=== PATIENT | male | born 1945 | race Caucasian/White ===

== ENCOUNTER → 2018-07-19 | Outpatient (CLI) | payer MEDICARE ==
--- NOTE | 2018-07-19 14:05 | Diagnostic Imaging Report ---
EXAMINATION: PA and lateral views of the chest. COMPARISON: None CLINICAL HISTORY: Chronic bronchitis DISCUSSION: Lines/tubes: None. Lungs: The lungs are well inflated. No pneumonia or pulmonary edema. Pleura: No pleural effusion or pneumothorax. Heart and mediastinum: The cardiomediastinal silhouette is normal. Bones and soft tissues: No acute bony abnormalities. IMPRESSION: No acute cardiopulmonary abnormalities. Signed by: Dr. Josias Guerrier M.D. on 07/19/2018 2:02 PM
== END ==
LOC: RAD 13:24
PROVIDERS: ATTEND Internal Medicine
DX: J41.0 Simple chronic bronchitis (principal)
CPT/HCPCS: 71046

== ENCOUNTER → 2018-07-26 | Outpatient (CLI) | payer MEDICARE ==
[~2018-07-26] MED LIST: DIATRIZOATE MEGL/DIATRIZOA SOD 30 ML BTL PO ONE; IOPAMIDOL 370 MG/ML 200 ML INFUS..BTL INJ ONE; SODIUM CHLORIDE 0.9% 50ML 50 ML ONE
[2018-07-26 16:50] LABS: BLOOD UREA NITROGEN 11 mg/dL (7-26); BUN/CREATININE RATIO 11 (6-25); CREATININE, SERUM 0.98 mg/dL (0.72-1.25); EST GLOMERULAR FILTRATION RATE > 60 ML/MIN (60-)
--- NOTE | 2018-07-26 18:04 | Diagnostic Imaging Report ---
EXAM: CT of the abdomen and pelvis WITH contrast HISTORY: Constipation COMPARISON: None. TECHNIQUE: The abdomen and pelvis were scanned utilizing a multidetector helical scanner. Coronal and sagittal reformats are provided. PROTOCOL: Routine IV CONTRAST: 100 cc of Isovue-370. ORAL CONTRAST: Dilute Gastrografin RADIATION DOSE: Total DLP: 445.19 mGy*cm Estimated effective dose: (DLP x 0.015 x size factor) Dose modulation, iterative reconstruction, and/or weight based adjustment of the mA/kV was utilized to reduce the radiation dose to as low as reasonably achievable. COMPLICATIONS: None FINDINGS: LOWER THORAX: Mild right middle lobe atelectasis versus scarring. HEPATOBILIARY: Diffusely decreased attenuation of the liver relative to the spleen. A 1 cm cyst near the dome. No biliary ductal dilatation. The gallbladder is unremarkable. SPLEEN: No splenomegaly. PANCREAS: A 1.4 cm hypodensity within the body (series 2 image 20). No ductal dilation. ADRENALS: No discrete adrenal nodule. Mild diffuse enlargement of the left adrenal gland. KIDNEYS/URETERS: No hydronephrosis, stones, or solid mass lesions. PELVIC ORGANS/BLADDER: Mild enlargement of the prostate, 5.1 cm (ML). PERITONEUM / RETROPERITONEUM: No free air or fluid. LYMPH NODES: No pathologically enlarged lymph node. VESSELS: Diffuse scattered atherosclerotic vascular calcifications. GI TRACT: No distention or wall thickening identified. The appendix is normal. Radiopaque contrast throughout the stomach and small bowel. The colonic fecal burden is mild to moderate. BONES: No aggressive osseous lesion or acute fracture. Moderate degenerative changes at L3-4 with associated 4 mm degenerative retrolisthesis of L3 on L4. SOFT TISSUES: Postsurgical changes in nonspecific fat stranding in the right inguinal region. IMPRESSION: 1. No obstruction or ileus. 2. The colonic fecal burden is mild to moderate. 3. Hepatic steatosis. 4. Incidental 1.4 cm hypodense pancreatic lesion, in the absence of prior pancreatitis, this may reflect a IPMN (Intraductal papillary mucinous neoplasm). Recommend a follow-up nonemergent MRI of the abdomen with and without contrast for further characterization. 5. Mildly enlarged prostate. Signed by: Dr. Francisco Rendon D.O., M.M.M. on 07/26/2018 6:01 PM
== END ==
LOC: CT 15:55
PROVIDERS: ATTEND Internal Medicine Gastroenterology
DX: K59.00 Constipation, unspecified (principal)
CPT/HCPCS: 36415; 74177; 82565; 84520; Q9967

== ENCOUNTER → 2018-08-02 | Day surgery (SDC) | payer MEDICARE ==
[2018-07-29 15:42] LABS: BASOPHILS # (AUTO) 0.1 (0.0-0.1); BASOPHILS % 0.8 % (0.0-1.0); EOSINOPHILS # (AUTO) 0.2 (0.0-0.4); EOSINOPHILS % 2.2 % (0.0-6.0); HEMATOCRIT 40.8 % (38.2-49.6); HEMOGLOBIN 14.3 g/dL (14.0-18.0); LYMPHOCYTES # (AUTO) 1.7 (1.0-3.2); LYMPHOCYTES % 19.8 % (18.0-39.1); MEAN CORPUSCULAR HEMOGLOBIN 32.9 pg (28-32); MONOCYTES # (AUTO) 1.1 (0.2-0.8); MONOCYTES % 12.3 % (4.4-11.3); NEUTROPHILS # (AUTO) 5.6 (2.1-6.9); NEUTROPHILS % 64.6 % (38.7-80.0); PLATELET COUNT 204 x10e3/uL (140-360); RED BLOOD COUNT 4.34 x10e6/uL (4.3-5.7); RED CELL DISTRIBUTION WIDTH 12.8 % (11.7-14.4)
[~2018-08-02] MED LIST changes: +ASPIRIN325 MG PO; -DIATRIZOATE MEGL/DIATRIZOA SOD 30 ML BTL PO ONE; +FENTANYL CITRATE/PF 100MCG/2 ML INJ ONE; +FISH OIL 1,0001 EAC2 PO; +FLAXSEED1000 MG PO; -IOPAMIDOL 370 MG/ML 200 ML INFUS..BTL INJ ONE; +MIDAZOLAM HCL 2 MG/2 ML VIAL ONE; +PROPOFOL IV EMULSION 10 MG/ML 20 ML VIAL ONE; -SODIUM CHLORIDE 0.9% 50ML 50 ML ONE; +VIT C PO; +VIT D PO; +VITAMIN E400 UNI1 PO
--- OUTSIDE RECORDS SUMMARY | 2018-08-02 10:04 | XMS REPORT | Summary of Care ---
Author Author [facility] Outpatient [facility] - [facility] - [place] Address Unknown Phone Unavailable Encounter HQ Kofintr_kamrandavid(FIN) [id number] Date(s): 01/22/15 - 01/22/15 [facility] [place] [address] [phone] Discharge Disposition: Home Attending Physician: Demetrio Cunha MD Vital Signs No data available for this section Problem List No data available for this section Allergies, Adverse Reactions, Alerts No data available for this section Medications No data available for this section Results No data available for this section Immunizations No data available for this section Procedures No data available for this section Social History No data available for this section Assessment and Plan No data available for this section
--- OUTSIDE RECORDS SUMMARY | 2018-08-02 10:04 | XMS REPORT | Summary of Care ---
Author Author [facility] Outpatient Imaging [facility] Outpatient [facility] Address Unknown Phone Unavailable Encounter HQ Encntr_alias(FIN) [id number] Date(s): 01/14/16 - 01/14/16 [facility] Outpatient Imaging [address] [address]- [phone] Discharge Disposition: Home Attending Physician: Demetrio Cunha [...]
--- OUTSIDE RECORDS SUMMARY | 2018-08-02 10:04 | XMS REPORT ---
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 Allergies, Adverse Reactions, Alerts This patient has no known allergies or adverse reactions. Medications This patient has no known medications. Results Test Description Test Time Test Comments Text Results Atomic Results Result Comments CT ABDOMEN/PELVIS W 2018-07-26 17:52:00 [place] [address] Patient Name: JOY SMITH MR #: [id number] : 1945 Age/Sex: 73/M Req #: [id number] Adm Physician: Ordered by: KARTHIK CROWDER MD Report #: [id number] Location: CT Room/Bed: Procedure: [id number] CT/CT ABDOMEN/PELVIS W Exam Date: 07/26/18 Exam Time: 1726 REPORT STATUS: Signed EXAM: CT of the abdomen and pelvis WITH contrast HISTORY: Constipation COMPARISON: None. TECHNIQUE: The abdomen and pelvis were scanned utilizing a multidetector helical scanner. Coronal and sagittal reformats are provided. PROTOCOL: Routine IV CONTRAST: 100 cc of Isovue-370. ORAL CONTRAST: Dilute Gastrografin RADIATION DOSE: Total DLP: 445.19 mGy*cm Estimated effective dose: (DLP x 0.015 x size factor) Dose modulation, iterative reconstruction, and/or weight based adjustment of the mA/kV was utilized to reduce the radiation dose to as low as reasonably achievable. COMPLICATIONS: None FINDINGS: LOWER THORAX: Mild right middle lobe atelectasis versus scarring. HEPATOBILIARY: Diffusely decreased attenuation of the liver relative to the spleen. A 1 cm cyst near the dome. No biliary ductal dilatation. The gallbladder is unremarkable. SPLEEN: No splenomegaly. PANCREAS: A 1.4 cm hypodensity within the body (series 2 image 20). No ductal dilation. ADRENALS: No discrete adrenal nodule. Mild diffuse enlargement of the left adrenal gland. KIDNEYS/URETERS: No hydronephrosis, stones, or solid mass lesions. PELVIC ORGANS/BLADDER: Mild enlargement of the prostate, 5.1 cm (ML). PERITONEUM / RETROPERITONEUM: No free air or fluid. LYMPH NODES: No pathologically enlarged lymph node. VESSELS: Diffuse scattered atherosclerotic vascular calcifications. GI TRACT: No distention or wall thickening identified. The appendix is normal. Radiopaque contrast throughout the stomach and small bowel. The colonic fecal burden is mild to moderate. BONES: No aggressive osseous lesion or acute fracture. Moderate degenerative changes at L3-4 with associated 4 mm degenerative retrolisthesis of L3 on L4. SOFT TISSUES: Postsurgical changes in nonspecific fat stranding in the right inguinal region. IMPRESSION: 1. No obstruction or ileus. 2. The colonic fecal burden is mild to moderate. 3. Hepatic steatosis. 4. Incidental 1.4 cm hypodense pancreatic lesion, in the absence of prior pancreatitis, this may reflect a IPMN (Intraductal papillary mucinous neopl asm). Recommend a follow-up nonemergent MRI of the abdomen with and without contrast for further characterization. 5. Mildly enlarged prostate. Signed by: Dr. Francisco Rendon D.O., M.M.M. on 07/26/2018 6:01 PM Dictated By: FRANCISCO RENDON DO 00 Transcribed By: GRZEGORZ on 07/26/181800 COPY TO: KARTHIK CROWDER MD CHEST 2 VIEWS 2018-07-19 14:01:00 [place] [address] Patient Name: JOY SMITH MR #: [id number] : 1945 Age/Sex: 73/M Req #: [id number] Adm Physician: Ordered by: ENMA JEREZ MD Report #: [id number] Location: [facility] Room/Bed: Procedure: [id number] DX/CHEST 2 VIEWS Exam Date: 07/19/18 Exam Time: 1325 REPORT STATUS: Signed EXAMINATION: PA and lateral views of the chest. COMPARISON: None CLINICAL HISTORY: Chronic bronchitis DISCUSSION: Lines/tubes: None. Lungs: The lungs are well inflated. No pneumonia or pulmonary edema. Pleura: No pleural effusion or pneumothorax. Heart and mediastinum: The cardiomediastinal silhouette is normal. Bones and soft tissues: No acute bony abnormalities. IMPRESSION: No acute cardiopulmonary abnormalities. Signed by: Dr. Myles Diggs M.D. on 07/19/2018 2:02 PM Dictated By: MYLES DIGGS MD 01 Transcribed By: GRZEGORZ on 07/19/181401 COPY TO: ENMA JEREZ MD
--- OUTSIDE RECORDS SUMMARY | 2018-08-02 10:04 | XMS REPORT | Summary of Care ---
Author Author [facility] Outpatient Imaging - [place] Organization [facility] - [place] Address Unknown Phone Unavailable Encounter HQ Encntr_aniceto(FIN) [id number] Date(s): 06/26/16 - 06/26/16 [facility] Outpatient Imaging - [place] [address] [place] [phone] Discharge Disposition: Home or Self Care Attending Physician: Demetrio Cunha MD Vital Signs [...]
--- OUTSIDE RECORDS SUMMARY | 2018-08-02 10:04 | XMS REPORT | Continuity of Care Document ---
Author Author [facility] Address Unknown Phone Unavailable Problems Problem Status Onset Date Classification Date Reported Comments Source M75.101 - UNSP ROTATR-CUFF TEAR/RUPTR OF Active 01/13/2016 [facility] [place] Medications Medication Details Route Status Patient Instructions Ordering Provider Order Date Source Allergies, Adverse Reactions, Alerts Substance Category Reaction Severity Reaction type Status Date Reported Comments Source Immunizations Immunization Date Given Site Status Last Updated Comments Source Results Order Name Results Value Reference Range Date Interpretation Comments Source Shoulder wo contrast MRI Shoulder wo contrast MRI EXAMINATION: MR right shoulder without contrast HISTORY: M75.101 Unspecified rotator cuff tear or rupture of right shoulder, not specified as traumatic; right rotator cuff tear status post repair in February 2016; right shoulder pain and limited range of motion following surgery FINDINGS: MR dated 01/14/2016 and radiographs dated 06/19/2016 are reviewed. Multiplanar, multisequence magnetic resonance imaging of the right shoulder is performed with a local coil. Transverse, oblique coronal, and oblique sagittal images are obtained. Biceps: The intra-articular long head of the biceps tendon is ruptured with distal retraction. Labrum: There is degeneration of the superior labrum without discrete tear. The labrum below the glenoid equator is intact. Rotator cuff tendons: There are postoperative changes of interval rotator cuff repair with punctate foci of susceptibly artifact and multiple orthopedic anchors along the greater tuberosity. Evaluation of the postoperative cuff is limited secondary to the lack of intra-articular contrast. The supraspinatus and infraspinatus tendons are diffusely thinned and attenuated, but appear to remain intact at the orthopedic anchor sites with a focal area of increased signal intensity along the anterior aspect of the supraspinatus tendon footprint. The teres minor tendon is intact. There is persistent tendinosis of the subscapularis tendon with mild partial-thickness articular sided fraying of the distal cranial fibers of the subscapularis tendon. Acromio-osseous outlet: There is a type II acromion with a subacromial spur. The coracoclavicular ligament is intact. Muscles: There is decreased muscle bulk of the supraspinatus muscle. Otherwise, there is normal signal intensity and muscle bulk of the rotator cuff musculature. Cartilage: There is moderate acromioclavicular degenerative arthrosis. Moderate glenohumeral osteoarthrosis is redemonstrated with multiple areas of high-grade, deep partial thickness to near full-thickness chondrosis along the humeral head. Bone: There is osteophyte formation along the inferomedial humeral head. There are no acute fractures. There are no suspicious bone marrow replacing lesions. The coracohumeral distance is narrowed measuring 6 mm (series 3, image 11). Soft tissue: There is no fluid in the subacromial-subdeltoid bursa. There is a small to moderate-sized glenohumeral joint effusion. IMPRESSION: 1. Postoperative changes of interval right rotator cuff repair with punctate foci of susceptibility artifact in multiple orthopedic anchors along the greater tuberosity. Evaluation of the postoperative cuff is limited secondary to the lack of intra-articular contrast; however, the supraspinatus and infraspinatus tendons, while diffusely thinned and attenuated, appear to remain intact at the orthopedic anchor sites. There is a focal area of increased signal intensity along the anterior aspect of the supraspinatus tendon apparent which may represent residual postoperative tendinosis. Improved evaluation and characterization of the postoperative right supraspinatus and infraspinatus tendons may be performed with MR arthrogram as clinically indicated, particularly given the underlying diffuse thinning and attenuation of the tendons. 2. Persistent tendinosis of the right subscapularis tendon with mild partial-thickness, articular sided fraying of the distal cranial fibers of the subscapularis tendon. There is also narrowing of the coracohumeral distance measuring 6 mm which is nonspecific, but may be seen in the setting of subcoracoid impingement in the correct clinical context. 3. Unchanged decreased muscle bulk of the right supraspinatus muscle. 4. Degeneration of the superior right glenoid labrum without discrete labral tear. 5. Unchanged moderate right glenohumeral osteoarthrosis with multiple areas of high- grade, deep partial thickness to near full-thickness chondrosis along the humeral head, as well as, osteophyte formation along the inferomedial humeral head. 6. Moderate right acromioclavicular degenerative arthrosis. 7. Small to moderate-sized right glenohumeral joint effusion. 06/26/2016 - - Read by: Ronan Briseno MD Dictated Date/time: 06/26/16 17:17 Electronically Signed by: Ronan Briseno MD 06/26/16 17:34 FINAL REPORT SHAUNNA Jalloh Shoulder series DX Shoulder series DX Exam: Right shoulder x-ray, 3 views Reason for Exam: pain in right shoulder Comparison Exam: MRI 01/14/2016 Discussion: No acute bony abnormality seen of the right shoulder. Osteoarthritis is again seen involving the glenohumeral joint and AC joint. No suspicious osteoblastic or osteolytic lesions. The visualized portions of the right rib cage and right lung are unremarkable. Impression: 1. No acute bony abnormality seen of the right shoulder. 06/19/2016 - - Read by: Raman Gross MD Dictated Date/time: 06/19/16 12:19 Electronically Signed by: Raman Gross MD 06/19/16 12:22 FINAL REPORT SHAUNNA Jalloh Shoulder wo contrast MRI Shoulder wo contrast MRI EXAM: MRI of the right shoulder without contrast INDICATION: M75.101 Unspecified rotator cuff tear or rupture of right shoulder, not specified as traumatic COMPARISON: None. TECHNIQUE: Multiplanar, multisequence magnetic resonance imaging of the right shoulder was performed without the administration of intravenous gadolinium contrast. FINDINGS: Glenohumeral joint: The humeral head is high riding with respect to the glenoid and there is associated acetabularization along the undersurface of the acromion. Glenohumeral joint osteoarthrosis is seen with joint space narrowing and marginal osseous spurring. Full-thickness cartilage loss with mild underlying cystic change along the superior humeral head is seen. Moderate-sized glenohumeral joint effusion and synovitis is noted, communicating with the subacromial-subdeltoid bursa. No labral tear or capsular abnormality is seen. Osseous acromion complex: The acromion is type III in morphology and shows horizontal orientation. Large subacromial bony spur arising from the undersurface of the acromion is seen. There is no os acromiale. Moderate-severe AC joint osteoarthrosis is seen. Rotator cuff tendons: Full thickness tear of the supraspinatus tendon and anterior fibers of the infraspinatus tendon is seen measuring 3.5 cm AP dimension with up to 4 cm proximal retraction of the torn tendon stumps. Moderate tendinosis of the remaining posterior fibers of the infraspinatus tendon is seen. Mild subscapularis tendinosis is also seen. There is a superimposed full-thickness tear of the superior fibers of the distal subscapularis tendon with proximal retraction of the torn tendon stump to the level of the glenoid. Biceps tendon: Intracapsular disruption of the biceps tendon at the biceps labral anchor is seen with distal retraction of the torn tendon stump to the level of the proximal humeral metaphysis. Soft tissues: No extracapsular mass or cystic fluid collection is seen. Moderate atrophy of the supraspinatus muscle belly is seen. IMPRESSION: 1. Glenohumeral joint osteoarthrosis with high-grade chondrosis along the humeral head. Moderate-sized glenohumeral joint effusion and synovitis is seen. 2. Full-thickness tear of the supraspinatus tendon and anterior fibers of the infraspinatus tendon measuring 3.5 cm AP dimension with up to 4 cm proximal retraction of the torn tendon stump. 3. Full-thickness tear of the superior fibers of the distal subscapularis tendon. 4. Intracapsular disruption of the biceps tendon at the biceps labral anchor with distal retraction of the torn tendon stump to the level of the proximal humeral metaphysis. 5. Moderate-severe AC joint osteoarthrosis. SL: [id number] 01/14/2016 - - Read by: Vaibhav Chang MD Dictated Date/time: 01/14/16 14:34 Electronically Signed by: Vaibhav Chang MD 01/14/16 14:44 FINAL REPORT [facility] [place] Humerus wo contrast MRI Humerus wo contrast MRI EXAMINATION: MRI of the left humerus without contrast HISTORY: Left biceps injury on 01/16/2015; patient felt a "pop"; biceps tendon rupture FINDINGS: There are no radiographs available for review. Multiplanar, multisequence magnetic resonance imaging of the left upper arm is performed with a local coil without contrast. There is complete rupture of the proximal long head of the biceps tendon within the bicipital groove with distal retraction of the biceps tendon to the level of the proximal left humerus approximately 11 cm distal to the superior aspect of the humeral head ( series 4, images 28 to 34). There is associated edema/hemorrhage within the proximal biceps tendon sheath and along the proximal long head of the biceps myotendinous junction. The short head of the biceps tendon remains intact proximally. The visualized aspect of the distal biceps tendon is normal. There is otherwise normal muscle bulk and signal intensity of the upper arm musculature. The neurovascular bundles are normal. There is subcutaneous edema along the anterior aspect of the proximal to mid upper arm. There is no evidence of fracture, osteonecrosis, or osteomyelitis within the visualized left humerus. 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 IMPRESSION: 1. Complete rupture of the proximal left long head of the biceps tendon within the bicipital groove with distal retraction of the biceps tendon and associated edema/hemorrhage within the proximal biceps tendon sheath and along the proximal myotendinous junction of the long head of the biceps muscle. 2. Subcutaneous edema/bruising along the anterior aspect of the proximal to mid left upper arm. 3. 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 Recommend correlation with patient's medical history and this may be further evaluated with thoracic spine radiographs as clinically indicated. 01/22/2015 - - Read by: Ronan Briseno MD Dictated Date/time: 01/22/15 17:19 Electronically Signed by: Ronan Briseno MD 01/22/15 17:32 FINAL REPORT SHAUNNA [place] Vital Signs Vital Sign Value Date Comments Source Encounters Location Location Details Encounter Type Encounter Number Reason For Visit Attending Provider ADM Date DC Date Status Source [facility] [place] [facility] [id number] Demetrio Martinez Jr 01/22/2015 01/23/2015 [facility] [place] [facility] [place] [facility] [id number] Demetrio Martinez Jr 01/14/2016 01/15/2016 SHAUNNA [place] [facility] - [place] [facility] [id number] Demetrio Martinez Jr 06/19/2016 06/20/2016 SHAUNNA Jalloh [facility] [place] [facility] [id number] Demetrio Martinez Jr 06/26/2016 06/27/2016 SHAUNNA Jalloh Procedures Procedure Code Date Perfomer Comments Source
--- OUTSIDE RECORDS SUMMARY | 2018-08-02 10:04 | XMS REPORT | Clinical Summary ---
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 Last Filed Vital Signs Not on file Plan of Treatment Health Maintenance Due Date Last Done Comments COLON CANCER SCREENING 1993 SHINGLES VACCINES (1 of 1993 2) PNEUMOCOCCAL 2008 POLYSACCHARIDE VACCINE AGE 65 AND OVER PNEUMOCOCCAL-13 2008 INFLUENZA VACCINE 02/02/2018 Results Not on fileafter 08/01/2017 Insurance Payer Benefit Subscriber ID Type Phone Address Plan / Group MEDICARE MEDICARE xxxxxxxxxx Medicare [place], [place] PART A [place] B AARP AARP xxxxxxxxxxx Commercial SUPPLEMENT (Home) [place] [address] Advance Directives Patient has advance care planning documents on file. For more information, yocasta e contact: Mg [facility] [address] [place] [address]
[2018-08-02 13:50] VITALS: BP 142/92
--- NOTE | 2018-08-02 16:03 | Operative Report ---
DATE OF PROCEDURE: August 02, 2018 REFERRING PHYSICIAN: Dr. Rodrick Jerez PROCEDURES PERFORMED 1. Esophagogastroduodenoscopy with biopsies. 2. Colonoscopy with biopsies. INDICATIONS FOR EGD: Dyspepsia. INDICATIONS FOR COLONOSCOPY: Colorectal cancer screening and change in bowel habits. MEDICATION: Patient was done under MAC. Please see anesthesiologist's note. PROCEDURE: With the patient in the left lateral decubitus position, the flexible fiberoptic Olympus gastroscope was introduced into the esophagus under direct visualization without any difficulty. There was some patchy erythema noted in the distal esophagus. Minute tongues of velvety red mucosa were noted to extend proximally from the GE junction. Biopsies were obtained to rule out Yousif's. The scope was then advanced with ease into the stomach. Mucosa overlying the antrum and the body revealed some patchy erythema and mild to moderate edema, and biopsies were obtained and sent to stain for H. pylori. The pylorus was of normal contour and shape. It was intubated with ease. The scope was advanced all the way to the 2nd portion of the duodenum. The scope was then withdrawn slowly. The mucosa overlying the proximal 2nd portion appeared to be within normal limits. An approximately 2 cm sessile lesion was noted in the posterior wall of the duodenal bulb and biopsies were obtained. The scope was then withdrawn back into the stomach and retroflexed. The mucosa overlying the fundus and the cardia appeared to be within normal limits. The scope was then straightened out. It was subsequently withdrawn. Patient tolerated the procedure well. IMPRESSION 1. Mild distal esophagitis. 2. Rule out Yousif's esophagus. 3. Gastritis, biopsied. Biopsies sent to stain for Helicobacter pylori. 4. An approximately 2 cm sessile lesion in posterior wall of duodenal bulb, biopsied. PLAN: Follow up histology. Initiate Protonix 40 mg 1 p.o. q.a.m. a.c. If the biopsies are negative, then an EUS might be in order. The patient was then turned around. After adequate lubrication of the anal canal, a flexible fiberoptic Olympus colonoscope was inserted into the rectum with ease and advanced all the way to the cecum. It was then withdrawn slowly. Mucosa overlying the cecum and ascending colon appeared to be within normal limits. A cluster of aphthous ulcers were noted in the proximal transverse colon and biopsies were obtained. The rest of the transverse appeared to be within normal limits. Some diverticular disease was noted in the distal descending and the sigmoid colon. The rectum appeared to be within normal limits. The scope was then retroflexed into the distal rectum and small internal hemorrhoids were noted, none of which was actively bleeding. IMPRESSION 1. Cluster of aphthous-like ulcers in the proximal transverse colon, biopsied. 2. Diverticulosis. 3. Internal hemorrhoids, none actively bleeding. PLAN: Follow up histology. Initiate high-fiber and low-fat diet. Initiate high-fiber supplement. Patient might benefit from a followup colonoscopy in 5 years. Job#: [id number] RI cc:RODRICK JEREZ MD
== END | disposition home or self-care (01) ==
LOC: OR 10:01
PROVIDERS: ATTEND Internal Medicine Gastroenterology
DX: K59.00 Constipation, unspecified (principal); K29.50 Unspecified chronic gastritis without bleeding; K63.3 Ulcer of intestine; K29.80 Duodenitis without bleeding; B96.81 Helicobacter pylori [H. pylori] as the cause of diseases classified elsewhere; K20.9 Esophagitis, unspecified; K57.30 Diverticulosis of large intestine without perforation or abscess without bleeding; K64.8 Other hemorrhoids; K22.8 Other specified diseases of esophagus; Z88.0 Allergy status to penicillin; Z01.810 Encounter for preprocedural cardiovascular examination; Z01.812 Encounter for preprocedural laboratory examination; Z79.82 Long term (current) use of aspirin; Z87.891 Personal history of nicotine dependence
CPT/HCPCS: 36415; 43239; 45380; 85025; 88305; 88312; 93005; J2250; J2704; 45378

== ENCOUNTER → 2019-06-05 | Outpatient (CLI) | payer MEDICARE ==
[~2019-06-05] MED LIST changes: -FENTANYL CITRATE/PF 100MCG/2 ML INJ ONE; +IOPAMIDOL 370 MG/ML 200 ML INFUS..BTL INJ ONE; -MIDAZOLAM HCL 2 MG/2 ML VIAL ONE; -PROPOFOL IV EMULSION 10 MG/ML 20 ML VIAL ONE; +SODIUM CHLORIDE 0.9% 250ML 250 ML ONE
[2019-06-05 16:10] LABS: BLOOD UREA NITROGEN 11 mg/dL (7-26); BUN/CREATININE RATIO 11 (6-25); CREATININE, SERUM 0.96 mg/dL (0.72-1.25); EST GLOMERULAR FILTRATION RATE > 60 ML/MIN (60-)
--- NOTE | 2019-06-05 17:36 | Diagnostic Imaging Report ---
EXAM: CT Abdomen and Pelvis without and WITH intravenous contrast - Hematuria protocol INDICATION: Gross hematuria COMPARISON: CT of the abdomen and pelvis dated 07/26/2018 TECHNIQUE: Abdomen and pelvis were scanned utilizing a multidetector helical scanner from the lung base to the pubic symphysis before and after administration of IV contrast. Coronal and sagittal reformations were obtained. Hematuria protocol was used. Scan was performed prior to contrast administration and during portal venous phase. IV CONTRAST: 150 mL of Isovue 370 COMPLICATIONS: None RADIATION DOSE: Dose modulation, iterative reconstruction, and/or weight based adjustment of the mA/kV was utilized to reduce the radiation dose to as low as reasonably achievable. FINDINGS: LOWER THORAX: Normal. HEPATOBILIARY: No suspicious focal hepatic lesions. 12 mm segment IV hepatic cyst. No biliary ductal dilatation. The gallbladder is nondistended. No radiopaque gallstones are identified. SPLEEN: No splenomegaly. PANCREAS: The pancreas contains a 1.4 cm low attenuating lesion in the pancreatic body and disc best appreciated on series 3 image 64. This appears unchanged when compared to examination dated 07/26/2018. The main pancreatic duct is nondilated. ADRENALS: No discrete adrenal nodules are identified. There is mild prominence of the left adrenal and, similar to prior examination. KIDNEYS/URETERS: No hydronephrosis, stones, or solid mass lesions. The kidneys normally enhance and there is normal excretion of contrast bilaterally. PELVIC ORGANS/BLADDER: The bladder wall is thickened. The prostate is enlarged measuring 5.2 cm in diameter. PERITONEUM / RETROPERITONEUM: No free air or fluid. LYMPH NODES: No lymphadenopathy. VESSELS: Scattered atherosclerotic calcifications of the abdominal aorta and branch vessels. GI TRACT: No distention or wall thickening. BONES: No acute osseous abnormalities. Mild degenerative changes of the lumbar spine. IMPRESSION: 1. No evidence of renal mass lesion or kidney stone. 2. Unchanged 1.4 cm hypodense pancreatic lesion in the pancreatic body. This may possibly represent a intraductal papillary mucinous neoplasm. Further evaluation with MRI/MRCP of the abdomen is recommended. 3. Enlarged prostate. Signed by: Vaibhav Hayes MD on 06/05/2019 5:33 PM
== END ==
LOC: CT 15:15
PROVIDERS: ATTEND Internal Medicine
DX: R31.0 Gross hematuria (principal); N40.1 Benign prostatic hyperplasia with lower urinary tract symptoms
CPT/HCPCS: 36415; 74178; 82565; 84520; J7050; Q9967

== ENCOUNTER → 2019-08-09 | Day surgery (SDC) | payer MEDICARE ==
[2019-08-07 13:59] LABS: BASOPHILS # (AUTO) 0.1 (0.0-0.1); BASOPHILS % 0.8 % (0.0-1.0); EOSINOPHILS # (AUTO) 0.2 (0.0-0.4); EOSINOPHILS % 2.2 % (0.0-6.0); HEMATOCRIT 42.3 % (38.2-49.6); HEMOGLOBIN 13.8 g/dL (14.0-18.0); LYMPHOCYTES # (AUTO) 1.8 (1.0-3.2); LYMPHOCYTES % 22.7 % (18.0-39.1); MEAN CORPUSCULAR HEMOGLOBIN 31.9 pg (28-32); MEAN CORPUSCULAR HGB CONC 32.6 g/dL (31-35); MEAN CORPUSCULAR VOLUME 97.9 fL (81-99); MONOCYTES # (AUTO) 0.9 (0.2-0.8); MONOCYTES % 11.5 % (4.4-11.3); NEUTROPHILS # (AUTO) 4.9 (2.1-6.9); NEUTROPHILS % 62.7 % (38.7-80.0); PLATELET COUNT 188 x10e3/uL (140-360); RED BLOOD COUNT 4.32 x10e6/uL (4.3-5.7); RED CELL DISTRIBUTION WIDTH 12.7 % (11.7-14.4)
[2019-08-07 14:23] LABS: ANION GAP 14.9 mmol/L (8-16); BLOOD UREA NITROGEN 12 mg/dL (7-26); BUN/CREATININE RATIO 15 (6-25); CALCIUM 9.2 mg/dL (8.4-10.2); CARBON DIOXIDE 22 mmol/L (22-29); CHLORIDE 107 mmol/L (98-107); CREATININE, SERUM 0.78 mg/dL (0.72-1.25); EST GLOMERULAR FILTRATION RATE > 60 ML/MIN (60-); GLUCOSE 96 mg/dL (74-118); POTASSIUM 3.9 mmol/L (3.5-5.1); SODIUM 140 mmol/L (136-145)
--- NOTE | 2019-08-07 14:34 | Diagnostic Imaging Report ---
EXAMINATION: CHEST 2 VIEWS INDICATION: Pre-operative COMPARISON: None FINDINGS: LINES/TUBES:None LUNGS:The lungs are hyperinflated. Mild right apical pleural parenchymal thickening/scarring. No focal consolidation or pulmonary edema. PLEURA:No pleural effusion or pneumothorax. MEDIASTINUM:The cardiomediastinal silhouette appears normal in size and shape. BONES/SOFT TISSUES:No acute osseous injury. ABDOMEN:No free air under the diaphragm. IMPRESSION: Hyperinflated lungs. No focal pneumonia or pulmonary edema. Signed by: Whit Kothari MD on 08/07/2019 2:32 PM
[~2019-08-09] MED LIST changes: +B&O 60MG R/S 60 MG SUPP PR ONE; +DEXAMETHASONE SOD PHOS INJ 4 MG/ML VIAL ONE; +FAMOTIDINE20 MG PO; +FENTANYL CITRATE/PF 100MCG/2 ML INJ ONE; +FINASTERIDE5 MG PO; +FLOMAX0.4 MG PO; +GENTAMICIN 80MG/NS 100 ML 200 ML IV ONE; +HEAL N SOOTHE PO; +IOPAMIDOL 300MG/ML 50ML INFUS..BTL IV ONE; -IOPAMIDOL 370 MG/ML 200 ML INFUS..BTL INJ ONE; +LIDOCAINE HCL 2% LOCAL INJ 5 ML SDV VIAL INJ ONE; +ONDANSETRON HCL INJ 2MG/ML 2ML 2 MG/ML VIAL ONE; +PROPOFOL IV EMULSION 10 MG/ML 50 ML VIAL ONE; +PROSTATE HEALT1 EAC1 PO; +SEVOFLURANE INHAL SOLN 250 ML PEN BTL ONE; -SODIUM CHLORIDE 0.9% 250ML 250 ML ONE; +VIAGRA100 MG PO
[2019-08-09 09:10] VITALS: BP 123/77
--- NOTE | 2019-09-18 06:14 | Operative Report ---
DATE OF PROCEDURE: 08/09/2019 SURGEON: Nixon Gonsales MD PREOPERATIVE DIAGNOSIS: Gross hematuria. POSTOPERATIVE DIAGNOSES: 1. Gross hematuria. 2. 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 OPERATIONS PERFORMED: 1. Cystourethroscopy with calibration and dilation of urethral strictures (separate procedure performed for the diagnosis of stricture). 2. Cystourethroscopy with bilateral ureteral catheterization and retrograde ureteropyelography (separate procedure performed for the hematuria). 3. Interpretation of retrograde ureteropyelography, no radiologist present. ANESTHESIA: General. COMPLICATIONS: None. CLINICAL SUMMARY: Marcos Arriaza is a 74-year-old man with the above preoperative diagnoses. He is brought for the above procedures. He is aware of the risks of bleeding, infection, injury to adjacent structures, need for additional procedures and would like to proceed. The patient has been on Flomax b.i.d. as well as Proscar for maximal medical therapy in addition the prostate supplements. His symptomatology continues to be problematic. OPERATIVE PROCEDURE IN DETAIL: Informed consent was verified. Marcos Arriaza was properly identified, taken to the operating room, placed on the cystoscopy table in supine position. Anesthesia was uneventfully begun. The patient was then performed carefully and gently repositioned in dorsal lithotomy position with all pressure points well padded. His genitalia were prepared and draped in the usual sterile fashion. The cystoscope sheath with obturator in place was atraumatically inserted into the patient's urethra was guided and it was obstructed at the fossa navicularis. This fossa navicularis was calibrated at 16-Puerto [place]ican in size and progressively dilated to 26-[place] in size. This allowed the cystoscope sheath easily to be placed in the patient's urethra, it was then guided down the otherwise unremarkable urethra to the bulbar region just outside the sphincteric region, there was normal stricture. We gently dilated across the stricture with the cystoscope was dilating it to 22.5-[place]ican in size. We went through the prostate bed, which was significant for trilobar prostatic hypertrophy with kissing lateral lobes as well as the median lobe. We entered the patient's bladder. Panendoscopy revealed heavy grade 3 trabeculations, but no tumors, no stones, and no true diverticula. An 8-Pu[place]ican catheter was used to cannulate each ureter and retrograde ureteral pyelogram was performed. Interpretation of retrograde ureteropyelography contrast was instilled in retrograde fashion bilaterally. There were no tumors, no stones, and no diverticula. Unobstructed drainage was observed bilaterally fluoroscopically. The patient's bladder was drained. Cystoscope was withdrawn. Belladonna and opium suppository were placed revealing a 50 g prostate that is smooth, nonfluctuant without any nodules. The patient was then uneventfully reversed from anesthesia and taken to recovery in stable condition. There were no complications to the procedure. He tolerated the procedure well. Postoperative instructions were given. We will plan to return the patient to the operating room for a transurethral resection of the prostate, which he obviously needs. The patient also has opted to discontinue his [id number] prostatic supplements. Nixon Gonsales MD [place]/MODL /[id number] cc: Rodrick Ruff MD
== END | disposition home or self-care (01) ==
LOC: OR 05:00
PROVIDERS: ATTEND Urology
DX: N35.919 Unspecified urethral stricture, male, unspecified site (principal); N32.89 Other specified disorders of bladder; I10 Essential (primary) hypertension; E11.9 Type 2 diabetes mellitus without complications; M19.90 Unspecified osteoarthritis, unspecified site; K86.89 Other specified diseases of pancreas; H91.90 Unspecified hearing loss, unspecified ear; K21.9 Gastro-esophageal reflux disease without esophagitis; F41.9 Anxiety disorder, unspecified; Z88.0 Allergy status to penicillin; Z01.810 Encounter for preprocedural cardiovascular examination; Z01.812 Encounter for preprocedural laboratory examination; Z01.818 Encounter for other preprocedural examination; Z87.891 Personal history of nicotine dependence
CPT/HCPCS: 36415; 52281; 71046; 74420; 80048; 85025; 93005; C1758; J1100; J1580; J2001; J2405; J2704; J3010; Q9967

== ENCOUNTER 2019-12-01 05:04 | Inpatient (IN) | payer MEDICARE, OTHER ==
--- NOTE | 2019-11-28 11:20 | Diagnostic Imaging Report ---
X-ray chest PA and lateral History: Preop Comparison: 08/07/2019 Findings: Central airways unremarkable. Mediastinal silhouettes unremarkable. Heart size normal. No pleural effusion or pneumothorax. Lung gutierrez are hyperinflated and symmetrically hyperlucent. No focal lung lesions otherwise. Degenerative changes in the visualized skeleton especially the cervical spine. Unremarkable upper abdomen and extrathoracic soft tissues. Impression: Findings suggestive of emphysema. No significant change. Signed by: Lenny Bruce MD on 11/28/2019 11:16 AM
[2019-11-28 14:58] LABS: BASOPHILS # (AUTO) 0.1 (0.0-0.1); BASOPHILS % 0.9 % (0.0-1.0); EOSINOPHILS # (AUTO) 0.2 (0.0-0.4); EOSINOPHILS % 2.8 % (0.0-6.0); HEMOGLOBIN 13.7 g/dL (14.0-18.0); LYMPHOCYTES # (AUTO) 1.6 (1.0-3.2); LYMPHOCYTES % 21.5 % (18.0-39.1); MEAN CORPUSCULAR HEMOGLOBIN 31.2 pg (28-32); MEAN CORPUSCULAR HGB CONC 32.6 g/dL (31-35); MEAN CORPUSCULAR VOLUME 95.7 fL (81-99); MONOCYTES # (AUTO) 0.9 (0.2-0.8); MONOCYTES % 11.9 % (4.4-11.3); NEUTROPHILS # (AUTO) 4.6 (2.1-6.9); NEUTROPHILS % 62.6 % (38.7-80.0); PLATELET COUNT 208 x10e3/uL (140-360); RED BLOOD COUNT 4.39 x10e6/uL (4.3-5.7)
[2019-11-28 15:15] LABS: BLOOD UREA NITROGEN 13 mg/dL (7-26); BUN/CREATININE RATIO 13 (6-25); CALCIUM 9.2 mg/dL (8.4-10.2); CARBON DIOXIDE 24 mmol/L (22-29); CHLORIDE 107 mmol/L (98-107); CREATININE, SERUM 1.02 mg/dL (0.72-1.25); EST GLOMERULAR FILTRATION RATE > 60 ML/MIN (60-); GLUCOSE 98 mg/dL (74-118); SODIUM 141 mmol/L (136-145)
[~2019-12-01] VITALS: Ht 179.1 cm; Wt 80.7 kg
[~2019-12-01 05:04] MED LIST changes: -B&O 60MG R/S 60 MG SUPP PR ONE; +CALCIUM MG ZINC PO; -DEXAMETHASONE SOD PHOS INJ 4 MG/ML VIAL ONE; -FENTANYL CITRATE/PF 100MCG/2 ML INJ ONE; -GENTAMICIN 80MG/NS 100 ML 200 ML IV ONE; +GENTLE LAXATIVE5 M1 PO; -IOPAMIDOL 300MG/ML 50ML INFUS..BTL IV ONE; -LIDOCAINE HCL 2% LOCAL INJ 5 ML SDV VIAL INJ ONE; +MIRALAX17 GM PO; -ONDANSETRON HCL INJ 2MG/ML 2ML 2 MG/ML VIAL ONE; -PROPOFOL IV EMULSION 10 MG/ML 50 ML VIAL ONE; +SAW PALMETTO 1160 MG PO; -SEVOFLURANE INHAL SOLN 250 ML PEN BTL ONE
[2019-12-01] MEDS ORDERED: GENTAMICIN 80MG/NS 100 ML 200 ML IV ONE (06:14)
[2019-12-01] MEDS ORDERED: IOPAMIDOL 300MG/ML 50ML INFUS..BTL IV ONE (06:36)
[2019-12-01] MEDS ORDERED: B&O 60MG R/S 60 MG SUPP PR ONE (06:36)
[2019-12-01] MEDS ORDERED: LEVOFLOXACIN 500MG/D5W 100ML 100 ML IV ONE (07:26)
[2019-12-01] MEDS ORDERED: B&O 60MG R/S 60 MG SUPP PR PRN (09:30)
[2019-12-01] MEDS ORDERED: DIPHENHYDRAMINE HCL 25 MG CAP PO PRN (09:30)
[2019-12-01] MEDS ORDERED: ONDANSETRON HCL INJ 2MG/ML 2ML 2 MG/ML VIAL IV PRN (09:30)
[2019-12-01 09:57] LABS: BASOPHILS # (AUTO) 0.1 (0.0-0.1); BASOPHILS % 0.6 % (0.0-1.0); EOSINOPHILS # (AUTO) 0.1 (0.0-0.4); EOSINOPHILS % 0.8 % (0.0-6.0); HEMATOCRIT 39.8 % (38.2-49.6); HEMOGLOBIN 12.9 g/dL (14.0-18.0); LYMPHOCYTES # (AUTO) 0.7 (1.0-3.2); MEAN CORPUSCULAR HEMOGLOBIN 31.8 pg (28-32); MEAN CORPUSCULAR HGB CONC 32.4 g/dL (31-35); MONOCYTES # (AUTO) 0.3 (0.2-0.8); MONOCYTES % 2.6 % (4.4-11.3); NEUTROPHILS # (AUTO) 10.6 (2.1-6.9); NEUTROPHILS % 89.5 % (38.7-80.0); PLATELET COUNT 180 x10e3/uL (140-360); RED BLOOD COUNT 4.06 x10e6/uL (4.3-5.7)
[2019-12-01 10:20] LABS: ANION GAP 9.4 mmol/L (8-16); BLOOD UREA NITROGEN 11 mg/dL (7-26); BUN/CREATININE RATIO 15 (6-25); CALCIUM 7.7 mg/dL (8.4-10.2); CARBON DIOXIDE 20 mmol/L (22-29); CHLORIDE 114 mmol/L (98-107); CREATININE, SERUM 0.75 mg/dL (0.72-1.25); EST GLOMERULAR FILTRATION RATE > 60 ML/MIN (60-); GLUCOSE 121 mg/dL (74-118); POTASSIUM 4.4 mmol/L (3.5-5.1); SODIUM 139 mmol/L (136-145)
--- OUTSIDE RECORDS SUMMARY | 2019-12-01 10:23 | XMS REPORT | Continuity of Care Document ---
Author Author Laron K[facility] JOY Freitas Organization Familiar Address Unknown Phone Unavailable Care Team Providers Care Jawbone Puller Name Role Phone [employer] Unavailable Un available Problems Problem Status Onset Date Classification Date Reported Comments Source M75.101 - UNSP ROTATR-CUFF TEAR/RUPTR OF Active 01/13/2016 [facility] [place] Medications No Data Provided for This Section Allergies, Adverse Reactions, Alerts No Known Medication Allergies Immunizations No Data Provided for This Section Results No Data Provided for This Section Pathology Reports No Data Provided for This Section Diagnostic Reports Report Value Date Source Shoulder wo contrast MRI EXAMI NATION: MR right shoulder without contrast HISTORY: M75.101 [...] effusion. IMPRESSION: 1. Postoperative changes of interval rig ht rotator cuff repair with punctate foci of [...] tendons. 2. Persistent tendinosis of the right de la paz bscapularis tendon with mild partial- thickness, articular sided fraying of the distal cranial fibers of the subscapularis tendon. There is also narrowing of the coracohumeral distance measuring 6 mm which is nonspecific, but may be seen in the setting of subcoracoid impingement in the correct clinical context. 3. Unchanged decreased muscle bulk of th e right supraspinatus muscle. 4. Degeneration of the superior right gl enoid labrum without discrete labral tear. 5. Unchanged moderate right glenohumeral osteoarthrosis with multiple areas of high-grade, deep partial thickness to near full-thickness chondrosis along the humeral head, as well as, osteophyte formation along the inferomedial humeral head. 6. Moderate right acromioclavicular dege nerative arthrosis. 7. Small to moderate-sized right glenohu meral joint effusion. 06/26/2016 SHAUNNA Jalloh Shoulder series DX Exam: Righ t shoulder x-ray, 3 views Reason for Exam: pain in right shoulder Comparison Exam: MRI 01/14/2016 Discussion: No acute bony abnormality seen of the right shoulder. Osteoarthritis is again seen involving the glenohumeral joint and AC joint. No suspicious osteoblastic or osteolytic lesions. The visualized portions of the right rib cage and right lung are unremarkable. Impression: 1. No acute bony abnormality seen of th e right shoulder. 06/19/2016 [facility] Shoulder wo contrast MRI EXAM: MRI of [...] is seen. IMPRESSION: 1. Glenohumeral joint osteoarthrosis wit h high-grade chondrosis along the humeral head. Moderate-sized glenohumeral joint effusion and synovitis is seen. 2. Full-thickness tear of the supraspina tus tendon and anterior fibers of the infraspinatus tendon measuring 3.5 cm AP dimension with up to 4 cm proximal retraction of the torn tendon stump. 3. Full-thickness tear of the superior f ibers of the distal subscapularis tendon. 4. Intracapsular disruption of the bicep s tendon at the biceps labral anchor with distal retraction of the torn tendon stump to the level of the proximal humeral metaphysis. 5. Moderate-severe AC joint osteoarthros is. SL: [id number] 01/14/2016 [facility] [place] Humerus wo contrast MRI EXAMIN ATION: MRI of the left humerus without contrast HISTORY: Left biceps injury on 01/16/2015; patient felt a 'pop'; biceps tendon rupture FINDINGS: There are no [...] arm. 3. 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 Recommend correlation with patient's medical history and this may be further evaluated with thoracic spine radiographs as clinically indicated. 01/22/2015 [facility] [place] Consultation Notes No Data Provided for This Section Discharge Summaries No Data Provided for This Section History and Physicals No Data Provided for This Section Vital Signs No Data Provided for This Section Encounters Location Location Details Encounter Type Encounter Number Reason For Visit Attending Provider ADM Date DC Date Status Source [facility] [place] [facility] [id number] Demetrio Martinez Jr 01/22/2015 01/23/2015 [facility] [place] [facility] [place] [facility] [id number] Demetrio Martinez Jr 01/14/2016 01/15/2016 [facility] [place] [facility] [place] [facility] [id number] Demetrio Martinez Jr 06/19/2016 06/20/2016 [facility] [place] [facility] [place] [facility] [id number] 03 Demetrio Martinez Jr 06/26/2016 06/27/2016 [facility] [place] Procedures No Data Provided for This Section Assessment and Plan No Data Provided for This Section Plan of Care No Data Provided for This Section Social History Social History Date Source No data available for this section 06/27/2016 [facility] [place] No data available for this section 01/15/2016 [facility] [place] No data available for this section 01/23/2015 [facility] [place] Family History No Data Provided for This Section Advance Directives No Data Provided for This Section Functional Status No Data Provided for This Section
--- OUTSIDE RECORDS SUMMARY | 2019-12-01 10:23 | XMS REPORT ---
Author Author [facility] t Organization [facility] Address [facility] [place] [address] [place] [address] Phone Unavailable Care Team Providers Care Tail Puller Name Role Phone Ifeanyi Velez MD PCP YVETTE ALAN Attphys Unavailable ORENMA LINN Attphys Unavailable KARTHIK CROWDER Attphys Unavailable Yves Martinez Jr Attphys Problems Condition Name Condition Details Condition Category Status Onset Date Resolution Date Last Treatment Date Treating Clinician Comments Source M75.101 - UNSP ROTATR-CUFF TEAR/RUPTR OF M75.101 - UNSP ROTATR-CUFF TEAR/RUPTR OF Active 01/13/2016 RJ Cochran Diagnosis Active 2016-01-13 00:01:00 2016-01-14 13:23:00 RJ Cochran Allergies, Adverse Reactions, Alerts This patient has no known allergies or adverse reactions. 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 Medications This patient has no known medications. Procedures This patient has no known procedures. Plan of Care Planned Activity Planned Date Details Comments Source Future Scheduled Test 2020-02-03 00:00:00 INFLUENZA VACCINE [code = INFLUENZA VACCINE] [facility] Scheduled Test 2008 00:00:00 65+ PNEUMOCOCCAL V ACCINE (1 of 2 - PCV13) [code = 65+ PNEUMOCOCCAL VACCINE (1 of 2 - PCV13)] [facility] Scheduled Test 1993 00:00:00 COLONOSCOPY SCREEN ING [code = COLONOSCOPY SCREENING] [facility] Scheduled Test 1993 00:00:00 SHINGLES VACCINES (#1) [code = SHINGLES VACCINES (#1)] [facility] Encounters Start Date/Time End Date/Time En[facility] ID Source 2016-06-26 19:45:00 2016-06-27 05:59:00 Outpt Diag [facility] [place] [id number] [facility] [place] 2016-06-26 13:45:00 2016-06-26 23:59:00 Outpatient Demetrio Martinez [facility] [id number] 2016-06-19 16:41:00 2016-06-20 05:59:00 Outpt Diag Services [facility] [place] [id number] [facility] [place] 2016-06-19 10:41:00 2016-06-19 23:59:00 Outpatient Demetrio Martinez MHH[facility]IP M[facility]IP [id number] 2016-01-14 18:12:00 2016-01-15 04:59:00 Outpt Diag Services [facility] [place] [id number] [facility] [place] 2016-01-14 13:12:00 2016-01-14 23:59:00 Outpatient Demetrio Martinez [id number] 2015-01-22 20:35:00 2015-01-23 04:59:00 Outpt Diag Services [facility] [place] [id number] [facility] [place] 2015-01-22 15:35:00 2015-01-22 23:59:00 Outpatient Demetrio Martinez [id number] Results Test Description Test Time Test Comments Results Result Comments Source CHEST 2 VIEWS 2019-11-28 11:12:00 [facility] [address] [place], [place] [address] Patient Name: JOY SMITH MR #: [id number] : 1945 Age/Sex: 74/M Req #: [id number] Adm Physician: Ordered by: YVETTE ALAN MD Report #: [id number] Location: OR Room/Bed: Procedure: [id number] DX/CHEST 2 VIEWS Exam Date: 11/28/19 Exam Time: 1020 REPORT STATUS: Signed X-ray chest PA and lateral History: Preop Comparison: 08/07/2019 Findings: Central airways unremarkable. Mediastinal silhouettes unremarkable. Heart size normal. No pleural effusion or pneumothorax. Lung gutierrez are hyperinflated and symmetrically hyperlucent. No focal lung lesions otherwise. Degenerative changes in the visualized skeleton especially the cervical spine. Unremarkable upper abdomen and extrathoracic soft tissues. Impression: Findings sugge stive of emphysema. No significant change. Signed by: Lenny Carter MD on 11/28/2019 11:16 AM Dictated By: LENNY CARTER MD 1116 Transcribed By: GRZEGORZ on 11/28/19 1116 COPY TO: YVETTE ALAN MD CHEST 2 VIEWS 2019-08-07 14:31:[address] [address] Patient Name: JOY SMITH MR #: [id number] : 1945 Age/Sex: 74/M Req #: [id number] Adm Physician: Ordered by: YVETTE ALAN MD Report #: [id number] Location: OR Room/Bed: Procedure: [id number] DX/CHEST 2 VIEWS Exam Date: 08/07/19 Exam Time: 1350 REPORT STATUS: Signed EXAMINATION: CHEST 2 VIEWS INDICATION: Pre-operative COMPARISON: None FINDINGS: LINES/TUBES:None LUNGS:The lungs are hyperinflated. Mild right apical pleural parenchymal thickening/scarring. No focal consolidation or pulmonary edema. PLEURA:No pleural effusion or pneumothorax. MEDIASTINUM:The cardiomediastinal silhouette appears normal in size and shape. BONES/SOFT TISSUES:No acute osseous injury. ABDOMEN:No free air under the diaphragm. IMPRESSION: Hyperinflated lungs. No focal pneumonia or pulmonary edema. Signed by: Johanna Gupta MD on 08/07/2019 2:32 PM Dictated By: JOHANNA GUPTA MD 1432 Transcribed By: GRZEGORZ on 08/07/19 1432 COPY TO: YVETTE ALAN MD CT ABDOMEN/PELVIS WO 2019-06-05 17:20:00 [place] [address] Patient Name: JOY SMITH MR #: [id number] : 1945 Age/Sex: 73/M Req #: [id number] Adm Physician: Ordered by: ENMA JEREZ MD Report #: [id number] Location: CT Room/Bed: Procedure: [id number] CT/CT ABDOMEN/PELVIS WOW Exam Date: 06/05/19 Exam Time: 1630 REPORT STATUS: Signed EXAM: CT Abdomen and Pelvis without and WITH intravenous contrast - Hematuria protocol INDICATION: Gross hematuria COMPARISON: CT of the abdomen and pelvis dated 07/26/2018 TECHNIQUE: Abdomen and pelvis were scanned utilizing a multidetector helical scanner from the lung base to the pubic symphysis before and after administration of IV contrast. Coronal and sagittal reformations were obtained. Hematuria protocol was used. Scan was performed prior to contrast administration and during portal venous phase. IV CONTRAST: 150 mL of Isovue 370 COMPLICATIONS: None RADIATION DOSE: Dose modulation, iterative reconstruction, and/or weight based adjustment of the mA/kV was utilized to reduce the radiation dose to as low as reasonably achievable. FINDINGS: LOWER THORAX: Normal. HEPATOBILIARY: No suspicious focal hepatic lesions. 12 mm segment IV hepatic cyst. No biliary ductal dilatation. The gallbladder is nondistended. No radiopaque gallstones are identified. SPLEEN: No splenomegaly. PANCREAS: The pancreas contains a 1.4 cm low attenuating lesion in the pancreatic body and disc best appreciated on series 3 image 64. This appears unchanged when compared to exam ination dated 07/26/2018. The main pancreatic duct is nondilated. ADRENALS: No discrete adrenal nodules are identified. There is mild prominence of the left adrenal and, similar to prior examination. KIDNEYS/URETERS: No hydronephrosis, stones, or solid mass lesions. The kidneys normally enhance and there is normal excretion of contrast bilaterally. PELVIC ORGANS/BLADDER: The bladder wall is thickened. The prostate is enlarged measuring 5.2 cm in diameter. PERITONEUM / RETROPERITONEUM: No free air or fluid. LYMPH NODES: No lymphadenopathy. VESSELS: Scattered atherosclerotic calcifications of the abdominal aorta and branch vessels. GI TRACT: No distention or wall thickening. BONES: No acute osseous abnormalities. Mild degenerative changes of the lumbar spine. IMPRESSION: 1. No evidence of renal mass lesion or kidney stone. 2. Unchanged 1.4 cm hypodense pancreatic lesion in the pancreatic body. This may possibly represent a intraductal papillary mucinous neoplasm. Further evaluation with MRI/MRCP of the abdomen is recommended. 3. Enlarged prostate. Signed by: Vaibhav Harvey MD on 06/05/2019 5:33 PM Dictated By: VAIBHAV HARVEY MD 32 Transcribed By: GRZEGORZ on 06/05/191732 COPY TO: ENMA JEREZ MD CT ABDOMEN/PELVIS W 2018-07-26 17:52:00 [place] [address] Patient Name: JOY SMITH MR #: [id number] : 1945 Age/Sex: 73/M Req #: [id number] Adm Physician: Ordered by: KARTHIK CROWDER MD Report #: [id number] Location: CT Room/Bed: Procedure: [id number] CT/CT ABDOMEN/PELVIS W Exam Date: 07/26/18 Exam [...] characterization. 5. Mildly enlarged prostate. Signed by: Dylan TruongO., M.M.M. on 07/26/2018 6:01 PM Dictated By: MYRIAM GUPTA DO 00 Transcribed By: GRZEGORZ on 07/26/181800 COPY TO: KARTHIK CROWDER MD CHEST 2 VIEWS 2018-07-19 14:01:00 [place] [address] Patient Name: JOY SMITH MR #: [id number] : 1945 Age/Sex: 73/M Req #: [id number] Adm Physician: Ordered by: ENMA JEREZ MD Report #: [id number] Location: [facility] Room/Bed: Procedure: [id number] DX/CHEST 2 VIEWS Exam Date: 07/19/18 Exam [...] 2:02 PM Dictated By: MYLES DIGGS MD 1402 Transcribed By: GRZEGORZ on 07/19/18 1402 COPY TO: ENMA JEREZ MD
--- OUTSIDE RECORDS SUMMARY | 2019-12-01 10:23 | XMS REPORT | Clinical Summary ---
Author Author [facility] Address Unknown Phone Unavailable Care Team Providers Care Displayer Name Role Phone Ifeanyi Velez MD PCP [...] Health Maintenance Due Date Last Done Comments COLONOSCOPY SCREENING 1993 SHINGLES VACCINES (#1) 1993 65+ PNEUMOCOCCAL VACCINE 2008 (1 of 2 - PCV13) INFLUENZA VACCINE 02/03/2020 Results Not on fileafter 11/30/2018 Insurance Type Payer Benefit Subscriber ID Effective Phone Address Plan / Dates Group Medicare MEDICARE MEDICARE xxxxxxxxxx 2008-P [place], PART A AND resent [place] B Commercial AARP AARP xxxxxxxxxxx 2015-P SUPPLEMENT resent (Home) [place] [address] Advance Directives For more information, please contact: [phone] Patient Research Quality Assurance Analyst Explanation Type Date Recorded Advance Directives, Living Will and Medical Power of Physical Sciences Instructor
[2019-12-01] MEDS: ACETAMINOPHEN/CODEINE 300MG - 30MG TAB PO PRN ×4 (11:07→23:34)
--- NOTE | 2019-12-01 11:35 | NUR ---
Received patient via stretcher from PACU. AAOX4 to time, person, place, situation. Respirations even and unlabored. 26F hurtado draining sanders red urine. On continuous irrigation. Oriented patient to room. Instructed to use call light for assistance. Voiced understanding.
[2019-12-01 12:00] VITALS: BP 102/56
[2019-12-01] MEDS: PHENAZOPYRIDINE HCL 100 MG TAB PO SCH ×2 (12:26→17:32)
[2019-12-01] MEDS: D5.45%NS/KCL 20MEQ 1,000 ML IV SCH ×2 (12:26→21:35)
[2019-12-01] MEDS: ACETAMINOPHEN 1000 MG/100 ML IV PRN ×2 (12:26→18:44)
[2019-12-01] MEDS: DOCUSATE SODIUM 100 MG CAP PO SCH (15:35)
[2019-12-01 16:17] VITALS: BP 107/55
--- NOTE | 2019-12-01 19:03 | NUR ---
Report given to oncoming nurse of patient's status. Resting in bed. No signs and symptoms of acute distress noted. Side rails upx2, call light within reach.
--- NOTE | 2019-12-01 19:22 | NUR ---
Resumed care of patient. Patient awake and resting in bed, no s/s of distress at this time. CBI in place, urine clear orange. Requesting pain medication when available. All safety measures in place. Will continue to monitor.
[2019-12-01 20:20] VITALS: BP 106/48
[2019-12-01 20:24] VITALS: BP 99/58
[2019-12-01 20:25] VITALS: BP 106/48
[2019-12-02] VITALS (8 sets, daily range): BP systolic 104–119; BP diastolic 48–63
[2019-12-02] MEDS: ACETAMINOPHEN 1000 MG/100 ML IV PRN ×2 (00:30→06:24)
--- NOTE | 2019-12-02 01:58 | Operative Report ---
DATE OF PROCEDURE: 12/01/2019 SURGEON: Nixon Gonsales MD PREOPERATIVE DIAGNOSES: 1. Obstructive benign prostatic hyperplasia. 2. Urethral stricture disease. POSTOPERATIVE DIAGNOSES: 1. Obstructive benign prostatic hyperplasia. 2. Urethral stricture disease. OPERATIONS PERFORMED: 1. Cystourethroscopy with calibration and dilation of urethral stricture (separate procedure performed for the diagnosis of stricture). 2. Cystourethroscopy with transurethral resection of the prostate (separate procedure performed for the obstructive BPH). ANESTHESIA: General. COMPLICATIONS: None. CLINICAL SUMMARY: Marcos Arriaza is a 74-year-old man with symptomatic BPH on maximal medical therapy. He is failing that therapy. He has a 64 mL prostate by ultrasonography and 55 g prostate by digital rectal examination. The patient had a previous cystoscopy with retrograde pyelograms and dilation of urethral strictures without significant relief of symptomatology and therefore elected to proceed with surgery today as planned. He is aware of the risks of bleeding, infection, injury to adjacent structures, incontinence, impotence, retrograde ejaculation, need for additional procedures, and he elected to proceed. OPERATIVE PROCEDURE IN DETAIL: Informed consent was verified. Marcos Arriaza was properly identified, taken to the operating room, placed on the cystoscopy table in supine position. Anesthesia was uneventfully begun. The patient was then carefully gently repositioned in dorsal lithotomy position with all pressure points well padded. His genitalia were prepared and draped in usual sterile fashion. Then, cystoscope sheath with the visual obturator in place was atraumatically inserted into the patient's urethral meatus, but the fossa navicularis was strictured, calibrating approximately 16-St Lucian in size. We took Marcella sounds and progressively dilated the patient's urethra from 16-St Lucian to 30-St Lucian utilizing sounds. There was obstruction at the level of the fossa navicularis as well as at the bulbar region. Following this, the cystoscope sheath was reintroduced as we performed cystoscopy. The urethra was now wide open at the fossa navicularis and at the bulbar region. The sphincteric region was normal. The patient's prostate bed was large with kissing lateral lobes and a small median lobe. We entered the patient's bladder, where there were grade 3 trabeculations with cellule formation, but no tumors, no stones, no diverticula. No suspicious lesions were identified. The cystoscope was withdrawn. The resectoscope was atraumatically placed with the obturator in place. We then proceeded with performing transurethral resection of the prostate utilizing the plasma-loop electrode. We resected first the median lobe. Once we eliminated it, we resected the prostate from the bladder neck to maneuver past the verumontanum and down the surgical capsule. A pinpoint electrocautery was utilized to achieve hemostasis. We evacuated all prostate chips and this was verified endoscopically. The resectoscope was then withdrawn. A continuous irrigation Julian catheter was placed. Irrigated to-and-fro to ensure it worked properly. There was virtually clear efflux under continuous irrigation. Belladonna and opium suppository were placed revealing a 55 g prostate, that is smooth, non-fluctuant without any nodules and the patient was uneventfully reversed from anesthesia and taken to recovery room in stable condition. There were no complications to the procedure. He tolerated procedure well. PLAN: We will plan to proceed with routine postoperative care and of course ongoing urological followup. Nixon Gonsales MD [place]/MODL /[id number] cc: Rodrick Ruff MD
[2019-12-02] MEDS: ACETAMINOPHEN/CODEINE 300MG - 30MG TAB PO PRN ×3 (03:35→17:15)
[2019-12-02] MEDS: LEVOFLOXACIN 500MG/D5W 100ML 100 ML IV SCH (05:10)
[2019-12-02] MEDS: D5.45%NS/KCL 20MEQ 1,000 ML IV SCH ×3 (05:10→17:30)
[2019-12-02 05:51] LABS: BASOPHILS # (AUTO) 0.1 (0.0-0.1); BASOPHILS % 0.4 % (0.0-1.0); EOSINOPHILS % 0.2 % (0.0-6.0); HEMATOCRIT 35.7 % (38.2-49.6); HEMOGLOBIN 11.9 g/dL (14.0-18.0); LYMPHOCYTES # (AUTO) 1.6 (1.0-3.2); LYMPHOCYTES % 10.6 % (18.0-39.1); MEAN CORPUSCULAR HEMOGLOBIN 31.9 pg (28-32); MEAN CORPUSCULAR HGB CONC 33.3 g/dL (31-35); MEAN CORPUSCULAR VOLUME 95.7 fL (81-99); MONOCYTES # (AUTO) 1.6 (0.2-0.8); MONOCYTES % 10.8 % (4.4-11.3); NEUTROPHILS # (AUTO) 11.4 (2.1-6.9); NEUTROPHILS % 77.6 % (38.7-80.0); PLATELET COUNT 169 x10e3/uL (140-360); RED BLOOD COUNT 3.73 x10e6/uL (4.3-5.7); RED CELL DISTRIBUTION WIDTH 13.1 % (11.7-14.4)
[2019-12-02 06:10] LABS: ANION GAP 8.1 mmol/L (8-16); BLOOD UREA NITROGEN 10 mg/dL (7-26); BUN/CREATININE RATIO 12 (6-25); CALCIUM 8.8 mg/dL (8.4-10.2); CARBON DIOXIDE 21 mmol/L (22-29); CHLORIDE 114 mmol/L (98-107); CREATININE, SERUM 0.81 mg/dL (0.72-1.25); EST GLOMERULAR FILTRATION RATE > 60 ML/MIN (60-); GLUCOSE 134 mg/dL (74-118); POTASSIUM 4.1 mmol/L (3.5-5.1); SODIUM 139 mmol/L (136-145)
--- NOTE | 2019-12-02 07:00 | NUR ---
Bedside report given to day nurse. Patient awake and resting in bed, no s/s of distress. All safety measures in place.
--- NOTE | 2019-12-02 07:57 | NUR ---
ASSUMED CARE AT APPROXIMATELY 0715. AAOX3. ACYANOTIC. NO DISTRESS NOTED. CONTINUOUS BLADDER IRRIGATION NOTED. WITH CLEAR YELLOW URINE NOTED. BED LOW. SIDE RAILS UP X2. CALL LIGHT IN REACH.
[2019-12-02] MEDS: PHENAZOPYRIDINE HCL 100 MG TAB PO SCH ×3 (09:12→17:17)
[2019-12-02] MEDS: DOCUSATE SODIUM 100 MG CAP PO SCH ×2 (09:12→17:17)
--- NOTE | 2019-12-02 09:34 | History and Physical ---
CHIEF COMPLAINT: "I have difficulty urinating." HISTORY OF PRESENT ILLNESS: This is a 74-year-old white man, who was initially admitted to [facility] with diagnosis of obstructive benign prostatic hypertrophy. Yesterday, the patient also has underlying urethral stricture disease. Yesterday, the patient underwent successful cystourethroscopy with dilation of the urethral stricture as well as transurethral resection of the prostate. This urologic surgery was performed by Dr. Nixon Gonsales. The patient tolerated surgery well. The patient voices no complaints today. Today's hemoglobin is 11.9 g/dL. On November 28, 2019, hemoglobin 13.4 g/dL. White blood cell count today is 14,600 with 77% segmented neutrophils. The patient's BUN and creatinine today is 10 and 0.81 respectively. Potassium 4.1. REVIEW OF SYSTEMS: GENERAL: Weight has been stable. No fever or chills. HEENT: No headaches. No visual changes. CARDIOVASCULAR: No chest pain. No short of breath or cough. GI: No nausea, vomiting, or diarrhea. He does have chronic constipation. : The patient has BPH symptoms, particularly urinary frequency, nocturia. NEUROMUSCULAR: No limb weakness or numbness. He does have arthritic joint pain, particularly from his previous orthopedic surgeries. ALLERGIES: PENICILLIN. PAST MEDICAL HISTORY: 1. Obstructive benign prostatic hypertrophy. 2. Urethral stricture. 3. Erectile dysfunction. 4. Chronic constipation. PAST SURGICAL HISTORY: 1. TURP in 2003. 2. TURP, yesterday, December 01, 2019. 3. Right arm surgery to repair a fracture. 4. Right inguinal hernia repair. 5. Bilateral rotator cuff surgery. 6. Bilateral lens implant. SOCIAL HISTORY: This man is . He lives alone. 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 He quit smoking and tobacco in 2013. The patient states he does drink alcohol on regular basis in the form Whiskey, usually three times a week. He does drink 1 or 2 shots of whiskey. MEDICATIONS: 1. Bisacodyl 5 mg once daily as needed for constipation. 2. Famotidine 10 mg b.i.d. 3. Finasteride 5 mg daily. 4. Polyethylene glycol 17 g daily. 5. Saw palmetto one tablet daily. 6. Prostate health two tablets daily. 7. Sildenafil 100 mg once daily as needed for erectile dysfunction. 8. Tamsulosin 0.4 mg b.i.d. 9. Calcium, magnesium, and zinc supplement once daily. 10. Awyy-p-Kwcryr two tablets daily. PHYSICAL EXAMINATION: GENERAL: He is awake, alert, and fully oriented. He is very pleasant and cooperative on exam. He is somewhat forgetful, but he does not appear to be in any obvious distress. VITAL SIGNS: Height 5 feet 11 inches, weight is 180 pounds, BMI is 25, blood pressure is 108/58, pulse 56, respiratory rate 18, temperature 97.7, and oxygen saturation 98% on room air. INTEGUMENT: Skin is warm and dry. No pallor, jaundice, or diaphoresis. HEENT: Anicteric sclerae. Dry mucous membranes. NECK: Supple. CARDIOVASCULAR: Distant heart sounds. Bradycardic rate with regular rhythm. LUNGS: No rales. No rhonchi. No wheezes. ABDOMEN: Soft. Normal bowel sounds. : The patient has an indwelling Julian catheter in place. Currently he is undergoing bladder irrigation. Urine is still orange in color. EXTREMITIES: No edema in legs. NEUROLOGIC: Intact. DIAGNOSES: 1. Obstructive benign prostatic hypertrophy. 2. Urethral stricture. 3. Status post Transurethral resection of the prostate. 4. Status post urethral dilatation. 5. Erectile dysfunction. 6. Chronic constipation. PLAN: 1. Follow hemoglobin and hematocrit. 2. Follow renal function. 3. Intravenous fluids. 4. Monitor blood pressure. 5. Continue bladder irrigation. 6. Encourage incentive spirometry usage to prevent atelectasis. I would like to thank Dr. Gonsales for involving me in the care of this patient. I spent 40 minutes in the care of this patient. MD SIMONA Joe/RAJAT /[id number] MTDClaudette
--- NOTE | 2019-12-02 19:30 | NUR ---
received report from day nurse. patient is resting comfortably in the bed. bed is in the lowest position and call sargent is within reach. will continue to monitor patient.
[2019-12-03 00:48] VITALS: BP 124/57
[2019-12-03] MEDS: D5.45%NS/KCL 20MEQ 1,000 ML IV SCH ×2 (03:22→12:44)
[2019-12-03 04:00] VITALS: BP 126/64
[2019-12-03] MEDS: LEVOFLOXACIN 500MG/D5W 100ML 100 ML IV SCH (05:20)
[2019-12-03 05:49] LABS: BASOPHILS # (AUTO) 0.1 (0.0-0.1); BASOPHILS % 0.7 % (0.0-1.0); EOSINOPHILS # (AUTO) 0.2 (0.0-0.4); HEMATOCRIT 42.6 % (38.2-49.6); HEMOGLOBIN 13.3 g/dL (14.0-18.0); LYMPHOCYTES # (AUTO) 1.3 (1.0-3.2); LYMPHOCYTES % 10.9 % (18.0-39.1); MEAN CORPUSCULAR HEMOGLOBIN 31.4 pg (28-32); MEAN CORPUSCULAR HGB CONC 31.2 g/dL (31-35); MEAN CORPUSCULAR VOLUME 100.7 fL (81-99); MONOCYTES # (AUTO) 1.7 (0.2-0.8); MONOCYTES % 14.9 % (4.4-11.3); NEUTROPHILS # (AUTO) 8.2 (2.1-6.9); NEUTROPHILS % 71.2 % (38.7-80.0); PLATELET COUNT 168 x10e3/uL (140-360); RED BLOOD COUNT 4.23 x10e6/uL (4.3-5.7); RED CELL DISTRIBUTION WIDTH 13.2 % (11.7-14.4)
[2019-12-03] MEDS: ACETAMINOPHEN/CODEINE 300MG - 30MG TAB PO PRN (06:24)
[2019-12-03 06:25] LABS: ALANINE AMINOTRANSFERASE 11 IU/L (0-55); ALBUMIN 2.8 g/dL (3.5-5.0); ALKALINE PHOSPHATASE 54 IU/L (40-150); ANION GAP 9.4 mmol/L (8-16); BLOOD UREA NITROGEN 8 mg/dL (7-26); BUN/CREATININE RATIO 10 (6-25); CALCIUM 8.7 mg/dL (8.4-10.2); CARBON DIOXIDE 24 mmol/L (22-29); CHLORIDE 110 mmol/L (98-107); CREATININE, SERUM 0.82 mg/dL (0.72-1.25); EST GLOMERULAR FILTRATION RATE > 60 ML/MIN (60-); GLUCOSE 108 mg/dL (74-118); POTASSIUM 4.4 mmol/L (3.5-5.1); SODIUM 139 mmol/L (136-145)
--- NOTE | 2019-12-03 06:36 | NUR ---
patient is resting comfortably in the bed. bed is in lowest position and call light is within reach.
--- NOTE | 2019-12-03 07:32 | NUR ---
ASSUMED CARE. AWAKE AND ALERT. ACYANOTIC. NO DISTRESS NOTED. CALL LIGHT IN REACH. SIDE RAILS UP X2. BED LOW. CONTINUOUS BLADDER IRRIGATION NOTED WITH CLEAR ORANGE URINE IN ADAMS TUBING. NO CLOTS PRESENT.
[2019-12-03 08:00] VITALS: BP 110/65
[2019-12-03 08:06] VITALS: BP 110/65
[2019-12-03] MEDS: DOCUSATE SODIUM 100 MG CAP PO SCH ×2 (08:36→17:05)
[2019-12-03] MEDS: PHENAZOPYRIDINE HCL 100 MG TAB PO SCH ×3 (08:36→17:05)
--- NOTE | 2019-12-03 10:48 | Discharge Summary ---
ADMIT DIAGNOSES: 1. Obstructive benign prostatic hypertrophy. 2. Urethral stricture. 3. Erectile dysfunction. 4. Chronic constipation. 5. Mild cognitive impairment. DISCHARGE DIAGNOSES: 1. Status post transurethral resection of prostate with urethral dilatation. 2. Obstructive benign prostatic hypertrophy. 3. Erectile dysfunction. 4. Chronic constipation. 5. Mild cognitive impairment. HOSPITAL COURSE: This is a 74-year-old white man, who was admitted to [facility] with a diagnosis of obstructive benign prostatic hypertrophy. The patient underwent successful transurethral resection of the prostate as well as urethral dilatation for urethral stricture during this hospital stay. This surgery was performed by Dr. Nixon Gonsales. The patient's hospitalization is unremarkable. The patient was watched for a couple of days in the hospital and during that time, he received continuous bladder irrigation. The patient's urine became less blood- tinged during this stay with the bladder irrigation. The patient's urine did have an orange tinge, but this is due to the Pyridium he was receiving. CONDITION ON DISCHARGE: Stable. DISCHARGE MEDICATIONS: 1. Levofloxacin 500 mg daily for 7 days. 2. Docusate 100 mg b.i.d. 3. Pyridium 100 mg t.i.d. for 7 days. 4. Tylenol No. 3 one pill every 4 hours p.r.n. pain, 20 prescribed, no refills. 5. Finasteride 5 mg daily. 6. Tamsulosin 0.4 mg two pills every night. 7. Polyethylene glycol 17 g daily. 8. Famotidine 20 mg b.i.d. 9. Bisacodyl 5 mg once daily as needed for severe constipation. 10. The patient was asked to stop all vitamin supplementations such as Saw palmetto, prostate health and calcium with magnesium and zinc until further notice. FOLLOWUP INSTRUCTIONS: The patient instructed to follow up with his primary care physician, namely myself, Dr. Rodrick Ruff, within 10 to [address] Gonsales, his urologist within 2 weeks. MD SIMONA Joe/RAJAT /[id number] cc: Nixon Gonsales MD MTDD
[2019-12-03 12:09] VITALS: BP 103/56
--- NOTE | 2019-12-03 14:30 | NUR ---
PATIENT VOIDED 30 ML OF PINK TINGED URINE POST REMOVAL OF URINARY ADAMS.
--- NOTE | 2019-12-03 14:44 | NUR ---
SERIAL URINE COLLECTION INITIATED ONCE PATIENT VOIDED AT [address] ALAN'S VERBAL ORDER. 2 SPECIMENS OF URINE COLLECTED SO FAR.
[2019-12-03 15:49] VITALS: BP 123/64
[2019-12-03] MEDS ORDERED: CIPRO500 MG PO (16:55)
[2019-12-03] MEDS ORDERED: ULTRAM50 MG PO (16:55)
== END 2019-12-03 17:30 | disposition home or self-care (01) | DRG 713 ==
LOC: OR 05:04 → PACU V 09:26 → MED/SURG 11:40
PROVIDERS: ADMIT Internal Medicine; ATTEND Internal Medicine
PROC: 0T7D8ZZ Dilation of Urethra, Via Natural or Artificial Opening Endoscopic (ICD-10-PCS; 2019-12-01)
PROC: 0VB08ZZ Excision of Prostate, Via Natural or Artificial Opening Endoscopic (ICD-10-PCS; principal; 2019-12-01 07:00)
DX: N40.1 Benign prostatic hyperplasia with lower urinary tract symptoms (principal); N13.8 Other obstructive and reflux uropathy; N52.9 Male erectile dysfunction, unspecified; K59.00 Constipation, unspecified; G31.84 Mild cognitive impairment of uncertain or unknown etiology; N35.919 Unspecified urethral stricture, male, unspecified site; H91.90 Unspecified hearing loss, unspecified ear; Z87.891 Personal history of nicotine dependence
CPT/HCPCS: 36415; 51700; 71046; 80048; 80053; 83735; 85025; 87635; 88305; 93005; J1580; J1956

== ENCOUNTER 2020-11-20 06:59 | Inpatient (IN) | payer MEDICARE ==
[2020-11-15 12:18] LABS: BASOPHILS # (AUTO) 0.1 (0.0-0.1); BASOPHILS % 1.2 % (0.0-1.0); EOSINOPHILS # (AUTO) 0.2 (0.0-0.4); EOSINOPHILS % 2.1 % (0.0-6.0); HEMATOCRIT 44.1 % (38.2-49.6); HEMOGLOBIN 14.9 g/dL (14.0-18.0); LYMPHOCYTES # (AUTO) 1.5 (1.0-3.2); LYMPHOCYTES % 19.9 % (18.0-39.1); MEAN CORPUSCULAR HEMOGLOBIN 32.7 pg (28-32); MEAN CORPUSCULAR HGB CONC 33.8 g/dL (31-35); MEAN CORPUSCULAR VOLUME 96.9 fL (81-99); MONOCYTES # (AUTO) 1.1 (0.2-0.8); MONOCYTES % 14.1 % (4.4-11.3); NEUTROPHILS # (AUTO) 4.8 (2.1-6.9); NEUTROPHILS % 62.4 % (38.7-80.0); PLATELET COUNT 189 x10e3/uL (140-360); RED BLOOD COUNT 4.55 x10e6/uL (4.3-5.7); RED CELL DISTRIBUTION WIDTH 13.1 % (11.7-14.4)
[2020-11-15 12:38] LABS: ANION GAP 11.3 mmol/L (8-16); BLOOD UREA NITROGEN 18 mg/dL (7-26); BUN/CREATININE RATIO 20 (6-25); CALCIUM 9.5 mg/dL (8.4-10.2); CARBON DIOXIDE 26 mmol/L (22-29); CHLORIDE 109 mmol/L (98-107); CREATININE, SERUM 0.89 mg/dL (0.72-1.25); EST GLOMERULAR FILTRATION RATE > 60 ML/MIN (60-); GLUCOSE 79 mg/dL (74-118); POTASSIUM 4.3 mmol/L (3.5-5.1); SODIUM 142 mmol/L (136-145)
[~2020-11-20] VITALS: Ht 177.8 cm; Wt 83.5 kg
[~2020-11-20 06:59] MED LIST changes: +CIPRO500 MG PO; +MAGNESIUM OXID400 MG PO; +ULTRAM50 MG PO; +VALTREX1000 MG PO; +VIT E PO
[2020-11-20] MEDS ORDERED: LEVOFLOXACIN 500MG/D5W 100ML 100 ML IV ONE (07:59)
[2020-11-20] MEDS ORDERED: GENTAMICIN 80MG/NS 100 ML 200 ML IV ONE (08:00)
[2020-11-20] MEDS ORDERED: SODIUM CHLORIDE 0.9% 1000ML 1,000 ML ONE (08:00)
[2020-11-20] MEDS ORDERED: B&O 60MG R/S 60 MG SUPP PR ONE (09:25)
[2020-11-20] MEDS ORDERED: ACETAMINOPHEN 1000 MG/100 ML 100 ML IV ONE (09:25)
[2020-11-20] MEDS ORDERED: IOPAMIDOL 300MG/ML 50ML INFUS..BTL IV ONE (09:26)
[2020-11-20] MEDS ORDERED: ACETAMINOPHEN/CODEINE 300MG - 30MG TAB PO PRN (10:15)
[2020-11-20] MEDS ORDERED: ONDANSETRON HCL INJ 2MG/ML 2ML 2 MG/ML VIAL IV PRN (10:15)
[2020-11-20] MEDS ORDERED: PHENAZOPYRIDINE HCL 100 MG TAB PO PRN (10:15)
[2020-11-20] MEDS ORDERED: B&O 60MG R/S 60 MG SUPP PR PRN (10:15)
[2020-11-20] MEDS ORDERED: DIPHENHYDRAMINE HCL 25 MG CAP PO PRN (10:15)
[2020-11-20 11:30] VITALS: BP_SYST 111; BP_SYST 112; BP_DIAS 64; BP_DIAS 65
[2020-11-20] MEDS: SODIUM CHLORIDE 0.9% 1000ML 1,000 ML IV SCH ×2 (12:35→21:54)
[2020-11-20 12:52] LABS: BASOPHILS # (AUTO) 0.1 (0.0-0.1); BASOPHILS % 1.1 % (0.0-1.0); EOSINOPHILS # (AUTO) 0.2 (0.0-0.4); EOSINOPHILS % 2.4 % (0.0-6.0); HEMATOCRIT 43.9 % (38.2-49.6); HEMOGLOBIN 14.5 g/dL (14.0-18.0); LYMPHOCYTES # (AUTO) 1.6 (1.0-3.2); LYMPHOCYTES % 25.8 % (18.0-39.1); MEAN CORPUSCULAR HEMOGLOBIN 32.7 pg (28-32); MEAN CORPUSCULAR VOLUME 98.9 fL (81-99); MONOCYTES # (AUTO) 0.6 (0.2-0.8); NEUTROPHILS # (AUTO) 3.8 (2.1-6.9); NEUTROPHILS % 60.4 % (38.7-80.0); PLATELET COUNT 172 x10e3/uL (140-360); RED BLOOD COUNT 4.44 x10e6/uL (4.3-5.7); RED CELL DISTRIBUTION WIDTH 13.3 % (11.7-14.4)
[2020-11-20 13:10] LABS: ANION GAP 10.6 mmol/L (8-16); BLOOD UREA NITROGEN 12 mg/dL (7-26); BUN/CREATININE RATIO 14 (6-25); CALCIUM 8.8 mg/dL (8.4-10.2); CARBON DIOXIDE 27 mmol/L (22-29); CHLORIDE 110 mmol/L (98-107); CREATININE, SERUM 0.83 mg/dL (0.72-1.25); EST GLOMERULAR FILTRATION RATE > 60 ML/MIN (60-); GLUCOSE 129 mg/dL (74-118); POTASSIUM 4.6 mmol/L (3.5-5.1); SODIUM 143 mmol/L (136-145)
[2020-11-20 15:08] VITALS: BP 108/63
[2020-11-20] MEDS: DOCUSATE SODIUM 100 MG CAP PO SCH (16:37)
[2020-11-20] MEDS ORDERED: PROPOFOL IV EMULSION 10 MG/ML 20 ML VIAL ONE (17:32)
[2020-11-20] MEDS ORDERED: POVIDONE IODINE 0.05% 0.05 % ML PO ONE (17:32)
[2020-11-20] MEDS ORDERED: ONDANSETRON HCL INJ 2MG/ML 2ML 2 MG/ML VIAL ONE (17:32)
[2020-11-20] MEDS ORDERED: SEVOFLURANE INHAL SOLN 250 ML PEN BTL ONE (17:32)
[2020-11-20] MEDS ORDERED: LIDOCAINE HCL 2% LOCAL INJ 5 ML SDV VIAL INJ ONE (17:32)
[2020-11-20 19:10] VITALS: BP 103/55
[2020-11-20] MEDS ORDERED: FENTANYL CITRATE/PF 100MCG/2 ML INJ ONE (19:34)
[2020-11-20] MEDS ORDERED: MIDAZOLAM HCL 2 MG/2 ML VIAL ONE (19:34)
[2020-11-20 20:00] VITALS: BP 103/55
[2020-11-21] VITALS (8 sets, daily range): BP systolic 105–114; BP diastolic 56–73
[2020-11-21 05:07] LABS: BASOPHILS # (AUTO) 0.1 (0.0-0.1); BASOPHILS % 0.6 % (0.0-1.0); EOSINOPHILS # (AUTO) 0.2 (0.0-0.4); EOSINOPHILS % 1.8 % (0.0-6.0); HEMATOCRIT 39.9 % (38.2-49.6); HEMOGLOBIN 13.6 g/dL (14.0-18.0); LYMPHOCYTES # (AUTO) 1.3 (1.0-3.2); LYMPHOCYTES % 13.1 % (18.0-39.1); MEAN CORPUSCULAR HEMOGLOBIN 33.1 pg (28-32); MEAN CORPUSCULAR HGB CONC 34.1 g/dL (31-35); MEAN CORPUSCULAR VOLUME 97.1 fL (81-99); MONOCYTES # (AUTO) 1.4 (0.2-0.8); MONOCYTES % 14.4 % (4.4-11.3); NEUTROPHILS % 69.8 % (38.7-80.0); PLATELET COUNT 171 x10e3/uL (140-360); RED BLOOD COUNT 4.11 x10e6/uL (4.3-5.7); RED CELL DISTRIBUTION WIDTH 13.3 % (11.7-14.4)
[2020-11-21 05:21] LABS: ALANINE AMINOTRANSFERASE 13 IU/L (0-55); ALBUMIN 2.9 g/dL (3.5-5.0); ALBUMIN/GLOBULIN RATIO 1.1 (0.8-2.0); ALKALINE PHOSPHATASE 61 IU/L (40-150); ANION GAP 10.1 mmol/L (8-16); BLOOD UREA NITROGEN 10 mg/dL (7-26); BUN/CREATININE RATIO 13 (6-25); CALCIUM 8.4 mg/dL (8.4-10.2); CARBON DIOXIDE 23 mmol/L (22-29); CHLORIDE 111 mmol/L (98-107); EST GLOMERULAR FILTRATION RATE > 60 ML/MIN (60-); GLUCOSE 101 mg/dL (74-118); POTASSIUM 4.1 mmol/L (3.5-5.1); SODIUM 140 mmol/L (136-145)
[2020-11-21] MEDS: SODIUM CHLORIDE 0.9% 1000ML 1,000 ML IV SCH ×3 (08:10→23:14)
[2020-11-21] MEDS: LEVOFLOXACIN 250MG/D5W 50ML 50 ML IV SCH (08:10)
[2020-11-21] MEDS: DOCUSATE SODIUM 100 MG CAP PO SCH ×2 (08:10→16:47)
[2020-11-22 00:46] VITALS: BP 117/66
[2020-11-22 04:00] VITALS: BP 120/76
[2020-11-22 05:16] LABS: BASOPHILS # (AUTO) 0.1 (0.0-0.1); BASOPHILS % 0.9 % (0.0-1.0); EOSINOPHILS # (AUTO) 0.2 (0.0-0.4); HEMATOCRIT 41.6 % (38.2-49.6); LYMPHOCYTES # (AUTO) 1.4 (1.0-3.2); LYMPHOCYTES % 17.7 % (18.0-39.1); MEAN CORPUSCULAR HEMOGLOBIN 32.5 pg (28-32); MEAN CORPUSCULAR HGB CONC 33.7 g/dL (31-35); MEAN CORPUSCULAR VOLUME 96.5 fL (81-99); MONOCYTES # (AUTO) 1.2 (0.2-0.8); MONOCYTES % 14.5 % (4.4-11.3); NEUTROPHILS # (AUTO) 5.1 (2.1-6.9); NEUTROPHILS % 63.7 % (38.7-80.0); PLATELET COUNT 174 x10e3/uL (140-360); RED BLOOD COUNT 4.31 x10e6/uL (4.3-5.7); RED CELL DISTRIBUTION WIDTH 13.1 % (11.7-14.4)
[2020-11-22 05:32] LABS: ANION GAP 12.7 mmol/L (8-16); BLOOD UREA NITROGEN 9 mg/dL (7-26); BUN/CREATININE RATIO 10 (6-25); CALCIUM 8.9 mg/dL (8.4-10.2); CARBON DIOXIDE 24 mmol/L (22-29); CHLORIDE 110 mmol/L (98-107); CREATININE, SERUM 0.86 mg/dL (0.72-1.25); EST GLOMERULAR FILTRATION RATE > 60 ML/MIN (60-); GLUCOSE 101 mg/dL (74-118); POTASSIUM 4.7 mmol/L (3.5-5.1); SODIUM 142 mmol/L (136-145)
[2020-11-22 07:58] VITALS: BP 103/62
[2020-11-22 08:47] VITALS: BP 103/62
[2020-11-22] MEDS: LEVOFLOXACIN 250MG/D5W 50ML 50 ML IV SCH (09:55)
[2020-11-22] MEDS: DOCUSATE SODIUM 100 MG CAP PO SCH (09:55)
[2020-11-22] MEDS ORDERED: ONDANSETRON HCL 4 MG ORAL DISINTEGRATING TAB PO PRN (10:00)
[2020-11-22 12:06] VITALS: BP 102/60
[2020-11-22] MEDS: SODIUM CHLORIDE 0.9% 1000ML 1,000 ML IV SCH (12:15)
== END 2020-11-22 16:26 | disposition home or self-care (01) | DRG 713 ==
LOC: OR 06:59 → PACU V 10:16 → MED/SURG 11:16
PROVIDERS: ADMIT Internal Medicine; ATTEND Internal Medicine
PROC: 0T788ZZ Dilation of Bilateral Ureters, Via Natural or Artificial Opening Endoscopic (ICD-10-PCS; 2020-11-20)
PROC: BT141ZZ Fluoroscopy of Kidneys, Ureters and Bladder using Low Osmolar Contrast (ICD-10-PCS; 2020-11-20)
PROC: 0VB08ZZ Excision of Prostate, Via Natural or Artificial Opening Endoscopic (ICD-10-PCS; principal; 2020-11-20 09:30)
PROC: 0T7D8ZZ Dilation of Urethra, Via Natural or Artificial Opening Endoscopic (ICD-10-PCS; 2020-11-20 09:30)
DX: N40.1 Benign prostatic hyperplasia with lower urinary tract symptoms (principal); N13.8 Other obstructive and reflux uropathy; G31.84 Mild cognitive impairment of uncertain or unknown etiology; N52.9 Male erectile dysfunction, unspecified; K59.00 Constipation, unspecified; N35.912 Unspecified bulbous urethral stricture, male; I10 Essential (primary) hypertension; R35.1 Nocturia; Z20.822 Contact with and (suspected) exposure to COVID-19
CPT/HCPCS: 36415; 74420; 80048; 80053; 82948; 83735; 85025; 93005; C1758; J1580; J1956; J2001; J2250; J2405; J3010; J7030; U0002

== ENCOUNTER 2020-11-24 11:24 | Emergency (ER) | payer MEDICARE ==
[~2020-11-24] VITALS: Ht 177.8 cm; Wt 83.5 kg
[2020-11-24] MEDS ORDERED: PANTOPRAZOLE 40 MG 10ML VIAL IV STA (11:51)
[2020-11-24 12:06] LABS: BASOPHILS # (AUTO) 0.1 (0.0-0.1); BASOPHILS % 0.5 % (0.0-1.0); COLOR,URINE ORANGE (YELLOW); EOSINOPHILS % 0.3 % (0.0-6.0); HEMATOCRIT 42.7 % (38.2-49.6); HEMOGLOBIN 14.6 g/dL (14.0-18.0); LYMPHOCYTES # (AUTO) 1.1 (1.0-3.2); LYMPHOCYTES % 8.6 % (18.0-39.1); MEAN CORPUSCULAR HEMOGLOBIN 32.5 pg (28-32); MEAN CORPUSCULAR HGB CONC 34.2 g/dL (31-35); MEAN CORPUSCULAR VOLUME 95.1 fL (81-99); MONOCYTES # (AUTO) 1.7 (0.2-0.8); MONOCYTES % 13.4 % (4.4-11.3); NEUTROPHILS # (AUTO) 9.6 (2.1-6.9); NEUTROPHILS % 76.9 % (38.7-80.0); PLATELET COUNT 201 x10e3/uL (140-360); RED BLOOD COUNT 4.49 x10e6/uL (4.3-5.7)
[2020-11-24 12:07] LABS: CLARITY,URINE CLEAR (CLEAR)
[2020-11-24 12:10] LABS: KETONES,URINE NEGATIVE (NEGATIVE); LEUKOCYTE ESTERASE ,URINE SMALL (NEGATIVE); NITRITE,URINE NEGATIVE (NEGATIVE); PROTEIN,URINE DIPSTICK 2+ (NEGATIVE); URINE UROBILINOGEN 0.2 mg/dL (0.2 - 1)
[2020-11-24 12:19] LABS: ALANINE AMINOTRANSFERASE 14 IU/L (0-55); ALBUMIN 3.4 g/dL (3.5-5.0); ALKALINE PHOSPHATASE 80 IU/L (40-150); ANION GAP 13.2 mmol/L (8-16); BLOOD UREA NITROGEN 14 mg/dL (7-26); BUN/CREATININE RATIO 15 (6-25); CALCIUM 9.5 mg/dL (8.4-10.2); CARBON DIOXIDE 24 mmol/L (22-29); CHLORIDE 107 mmol/L (98-107); CREATININE, SERUM 0.93 mg/dL (0.72-1.25); EST GLOMERULAR FILTRATION RATE > 60 ML/MIN (60-); GLUCOSE 105 mg/dL (74-118); INR 0.99; POTASSIUM 4.2 mmol/L (3.5-5.1); PROTHROMBIN TIME 13.7 seconds (11.9-14.5); SODIUM 140 mmol/L (136-145)
[2020-11-24 12:20] LABS: PARTIAL THROMBOPLASTIN TIME 28.2 seconds (23.8-35.5)
[2020-11-24 12:25] LABS: WBC,URINE (MAN) >50 /HPF (0-5)
[2020-11-24 12:26] LABS: BACTERIA,URINE RARE /HPF; EPITHELIAL CELLS,URINE FEW /LPF; RBC,URINE 21-50 /HPF (0-5)
== END 2020-11-24 14:16 | disposition home or self-care (01) ==
LOC: ER 11:51
DX: K62.5 Hemorrhage of anus and rectum (principal); R10.9 Unspecified abdominal pain; N39.0 Urinary tract infection, site not specified
CPT/HCPCS: 36415; 80053; 81001; 85025; 85610; 85730; 87086; 99283; C9113

== ENCOUNTER → 2024-09-06 | Outpatient (REF) | payer MEDICARE ==
[~2024-09-06] MED LIST changes: +IOPAMIDOL 370 MG/ML 100 ML INFUS..BTL INJ ONE
[2024-09-06 16:56] LABS: CREATININE, SERUM 0.8 mg/dL (0.72-1.25)
== END ==
LOC: CT 15:45
PROVIDERS: ATTEND Family Medicine
DX: K86.9 Disease of pancreas, unspecified (principal)
CPT/HCPCS: 36415; 74177; 82565; 84520; Q9967